=== PATIENT | female | born 1960 | race American Indian/Alaskan Native ===

== ENCOUNTER 2020-07-28 08:02 | Emergency (ER) | payer BC, SELFPAY ==
[2020-07-28 08:16] VITALS: BP 151/89; PULSE 109; RESP 20; TEMP 36.8; O2SAT 96; BMI 43.4
--- NOTE | 2020-07-28 08:31 | ED_ITS ---
HPI - Back Pain/Injury General Chief Complaint: Back Pain/Injury Stated Complaint: back/ side pain since friday Time Seen by Provider: 07/28/20 08:18 Source: patient Limitations: no limitations History of Present Illness HPI Narrative: Patient is a 60-year-old female with no known past medical history presenting with left flank pain ongoing for the last 2 days. She says it started suddenly when she twisted she said it was very spasming and took about 3 hours for to stop. Since then and has come and gone and now radiates down to her groin. She is extremely nauseous its worst pain she has ever felt. She has been taking ibuprofen for it which she says does seem to help. She denies any painful frequent urination she feels nauseous but no vomiting. No changes in bowel habits. She has had decrease in appetite. No prior history of kidney stones. MD Complaint: back pain Onset (ago): day(s) (2) Related Data Previous Rx's Medication Instructions Recorded cephalexin 500 mg PO BID 7 Days #14 cap 07/28/20 ondansetron 4 mg PO Q8H PRN #10 tab 07/28/20 Allergies Allergy/AdvReac Type Severity Reaction Status Date / Time Sulfa (Sulfonamide Allergy Intermediate rash Verified 07/28/20 08:15 Antibiotics) [SULFA (SULFONAMIDE ANTIBIOTICS)] nut - unspecified [NUT] Allergy Unknown LIPS SWELL Verified 07/28/20 08:15 strawberry [STRAWBERRY] Allergy Unknown LIPS SWELL Verified 07/28/20 08:15 Review of Systems Review of Systems Narrative: GENERAL: Denies chills, fatigue, malaise, fever, sweats, travel HEENT: Denies sinus pain, ear pain, sore throat, difficulty swallowing, neck pain RESPIRATORY: Denies dyspnea, cough, wheezing, hemoptysis, sputum. CARDIOVASCULAR: Denies chest pain, palpitations, orthopnea, edema GASTROINTESTINAL: Denies nausea, vomiting, abdominal pain, diarrhea, constipation, melena. : See HPI MUSCULOSKELETAL: + back pain Denies weakness, joint pain, or bony pain SKIN: No rash, no erythema, no pruritus NEUROLOGIC: Denies weakness, dizziness, headache, numbness, change in speech, confusion PSYCHIATRIC: No concerning psychosocial issues. 12 point review of systems is negative except for those stated above and HPI Patient History Medical History Patient denies medical problems Social History Smoking Status: Never smoker Smoking Status: Never smoker alcohol intake frequency: 0-2 drinks per day Substance Use Type: does not use Exam Initial Vital Signs Initial Vital Signs: Vital Signs Temperature 98.2 F 07/28/20 08:16 Pulse Rate 109 H 07/28/20 08:16 Respiratory Rate 20 07/28/20 08:16 Blood Pressure 151/89 H 07/28/20 08:16 Pulse Oximetry 96 07/28/20 08:16 GENERAL: Alert pleasant 6-year-old female BMI 43 appears in mild discomfort. HEENT: Head atraumatic,EOMI, pupils reactive, face symmetric, moist mucous membranes CARDIOVASCULAR: Regular rate and rhythm without murmurs, rubs or gallops. RESPIRATORY: Breath sounds equal bilaterally, no wheezes rales or rhonchi. ABDOMEN: Soft, nontender. Normoactive bowel sounds all 4 quadrants. No guarding or rebound. Mild left-sided lateral pain : No CVA tenderness EXTREMITIES: Normal range of motion, no clubbing or edema. Neurovascularly intact NEUROLOGICAL: Alert and oriented x4.Normal gait and speech. SKIN: Warm, dry, no laceration, no petechiae, no rashes or lesions. Course Orders Ordered: ED Orders 07/28/20 08:30 Complete Blood Count AUTO DIFF Stat Comprehensive Metabolic Panel Stat Lipase Stat 07/28/20 08:50 Urine Culture Stat Urine Microscopic Stat 07/28/20 09:19 CT kidney ureter bladder (KUB) Stat Discontinued Medications Sodium Chloride (Normal Saline 0.9%) 1,000 mls @ 1,000 mls/hr IV CONT LEONARD Last Infusion: 07/28/20 10:30 Dose: 0 mls/hr Documented by: Admin: 07/28/20 08:41 Dose: 1,000 mls/hr Documented by: AJ Ketorolac Tromethamine (Ketorolac 30 Mg/Ml Vial) 30 mg IV NOW ONE Stop: 07/28/20 08:27 Last Admin: 07/28/20 08:41 Dose: 30 mg Documented by: AJ Ondansetron HCl (Ondansetron 4 Mg/2 Ml Inj) 4 mg IV NOW ONE Stop: 07/28/20 08:27 Last Admin: 07/28/20 08:41 Dose: 4 mg Documented by: AJ Vital Signs Vital signs: Vital Signs - 8 hr 07/28/20 08:16 07/28/20 10:30 Temperature 98.2 F Pulse Rate 109 H 79 Respiratory Rate 20 18 Blood Pressure 151/89 H 161/88 H Pulse Oximetry 96 97 MDM - Back Pain/Injury Lab Data Attestation: I reviewed the patient's lab results. Result diagrams: 07/28/20 08:30 07/28/20 08:30 Labs: Lab Results 07/28/20 07/28/20 07/28/20 Range/Units 08:30 08:30 08:50 WBC 7.7 (4.5-11.0) X10^3/uL RBC 4.55 (4.0-5.2) X10^6/uL Hgb 13.8 (12.0-16.0) g/dL Hct 41.5 (36-46) % MCV 91.1 (80-100) fL MCH 30.4 (26-34) PG MCHC 33.3 (30-36) % RDW 13.3 (11.6-14.8) % Plt Count 223 (150-400) X10^3/uL Neut % (Auto) 73.3 (50-75) % Lymph % (Auto) 20.5 L (25-40) % [place] % (Auto) 5.3 (3-14) % Eos % (Auto) 0.3 L (2-4) % Baso % (Auto) 0.6 (0-2) % Neut # (Auto) 5600 (8477-8776) /uL Lymph # (Auto) 1600 (4278-9944) /uL [place] # (Auto) 400 (0-900) /uL Eos # (Auto) 0 (0-450) /uL Baso # (Auto) 0 (0-100) /uL Sodium 139 (137-145) mmol/L Potassium 4.1 (3.4-5.1) mmol/L Chloride 107 (98-107) mmol/L Carbon Dioxide 24 (22-32) mmol/L BUN 15 (7-17) mg/dL Creatinine 0.68 (0.52-1.04) mg/dL Estimated GFR > 60.0 (>60) mL/min BUN/Creatinine Ratio 22.1 H (6-22) Glucose 124 H (80-110) mg/dL Calcium 9.3 (8.4-10.2) mg/dL Total Bilirubin 1.0 (0.2-1.3) mg/dL AST 45 H (14-36) IU/L ALT 34 (<35) IU/L Alkaline Phosphatase 91 (38-126) U/L Total Protein 8.1 (6.3-8.2) g/dL Albumin 4.1 (3.5-5.0) g/dL Globulin 4.0 (1.7-4.1) g/dL Albumin/Globulin Ratio 1.0 (1.0-2.8) Lipase 45 (23-300) U/L Urine RBC 10-30/hpf H (0-5/HPF) Urine WBC 1-5/hpf (0-5/HPF) Ur Squamous Epith Cells 1-5 /hpf (0-5/HPF) Calcium Oxalate Crystal Few H Urine Bacteria Moderate (10-30) H (None) Urine Mucus 2+ H (Negative) Ur Culture Indicated? Specimen cultured Urine Dip Bedside Urine Glucose Negative Bedside Urine Bilirubin - Negative Bedside Urine Ketone + 15 Urine Specific [place] 1.030 Bedside Urine Occult Blood +++ Bedside Urine pH 6.0 Bedside Urine Protein + 30 Bedside Urine Urobilinogen - Negative Bedside Urine Nitrite - Negative Bedside Urine Leukocytes - Negative Esterase Imaging Data CT scan - abdomen/pelvis: Radiologist's Impression: PROCEDURE: CT KIDNEY URETER BLADDER (KUB) INDICATIONS: left flank pain TECHNIQUE: Noncontrast 5 mm thick sections acquired from the diaphragms to the symphysis. 5 mm thick coronal and sagittal reformats were then performed. For radiation dose reduction, the following was used: automated exposure control, adjustment of mA and/or kV according to patient size. COMPARISON: None. FINDINGS: Image quality: Excellent. Lung bases: Lung bases are clear. Heart size is normal. There is a moderate- sized hiatal hernia. Urinary system: There is a 4 mm stone in the proximal left ureter. There is mild left hydronephrosis with perinephric and periureteral stranding. Both kidneys are normal in size. No other kidney stones. Both ureters appear non-dilated throughout their expected courses. Bladder wall thickness is normal; no calcified bladder stones. Other solid organs: Hepatic steatosis. There are several low-density nodules in liver. Liver is normal in size. Gallbladder may contain sludge or small gallstones. Pancreas is normal in contours. Spleen is normal in size. No adrenal nodules. Peritoneum and bowel: Unenhanced bowel loops demonstrate normal wall thickness and caliber. No free fluid or air. Nodes and vessels: No retroperitoneal or mesenteric adenopathy by size criteria. Aorta and inferior vena cava are normal in caliber. Abdominal wall: There is a tiny fat containing umbilical hernia. Pelvis: No free pelvic fluid. No inguinal hernias or adenopathy. Bones: No suspicious bony lesions. No vertebral body compression fractures. IMPRESSION: 1. A 4 mm obstructive stone in the proximal left ureter causing mild left hydronephrosis. 2. Multiple hepatic hypodensities. Some are likely cysts but a few are indeterminate. Recommend a nonurgent abdominal ultrasound for further evaluation to exclude solid renal masses. 3. Hepatic steatosis. 4. Moderate-sized hiatal hernia. 5. Gallbladder sludge versus small gallstones. Dictated by: Soniya Tejada M.D. on 07/28/2020 at 9:53 MDM Narrative Medical decision making narrative: Patient's pain significantly improved after Toradol. His niece found have a core mm stone and UTI noted. She is offered opiate medications for pain however declines at this time is but would take Zofran. He is also found to have some indeterminate areas on her liver which I did discuss with her and recommended outpatient follow-up. Discharge Plan Departure Patient Disposition: Home Clinical Impression: Kidney stone on left side UTI (urinary tract infection) Qualifiers: Urinary tract infection type: acute cystitis Hematuria presence: with hematuria Qualified Code(s): N30.01 - Acute cystitis with hematuria Instructions: DI for Kidney Stones, DI for Urinary Tract Infection (UTI) Activity Restrictions/Additional Instructions: *You have been diagnosed with kidney stone *What to do: Increase fluid intake as tolerated you should passed kidney stone without issue. You are also found to have some areas on your liver which need to be followed by primary care provider *Continue to take medications as directed Keflex 500 mg twice a day for 7 days Ibuprofen 600 mg every 6 hours if needed for [id number] pain Zofran 4 mg every 8 hours if needed for nausea *Follow up with your primary care provider in 2-3 days *Return to ER if you should have increasing pain, fever, inability to urinate or any new, worsening or concerning symptoms Prescriptions: New ondansetron 4 mg tablet,disintegrating 4 mg PO Q8H PRN (Reason: nausea and vomiting) Qty: 10 RF: 0 cephalexin 500 mg capsule 500 mg PO BID 7 Days Qty: 14 RF: 0 Referrals: [facility] [Outside] Luiza Cole FNP-C [Primary Care Provider] -
[2020-07-28] MEDS: ONDANSETRON 4 MG/2 ML INJ IV (08:41)
[2020-07-28] MEDS: KETOROLAC 30 MG/ML VIAL IV (08:41)
[2020-07-28] MEDS: SODIUM CHLORIDE 0.9% 1,000 ML 1000 ML IV (08:41)
[2020-07-28 08:58] LABS: Add Manual Diff / Slide Review NO; Basophils Absolute Auto 0 /uL (0-100); Basophils Percent Auto 0.6 % (0-2); Eosinophils Absolute Auto 0 /uL (0-450); Eosinophils Percent Auto 0.3 % (2-4); Hematocrit 41.5 % (36-46); Hemoglobin 13.8 g/dL (12.0-16.0); Lymphocytes Absolute Auto 1600 /uL (1100-4500); Lymphocytes Percent Auto 20.5 % (25-40); Mean Corpuscular HGB Conc 33.3 % (30-36); Mean Corpuscular Hemoglobin 30.4 PG (26-34); Mean Corpuscular Volume 91.1 fL (80-100); Monocytes Absolute Auto 400 /uL (0-900); Monocytes Percent Auto 5.3 % (3-14); Neutrophils Absolute Auto 5600 /uL (1500-7000); Neutrophils Percent Auto 73.3 % (50-75); Platelet Count 223 X10^3/uL (150-400); Red Blood Cell Count 4.55 X10^6/uL (4.0-5.2); Red Cell Distribution Width 13.3 % (11.6-14.8); White Blood Cell Count 7.7 X10^3/uL (4.5-11.0)
[2020-07-28 09:10] LABS: Alanine Aminotransferase 34 IU/L (<35); Albumin 4.1 g/dL (3.5-5.0); BUN Creatinine Ratio 22.1 (6-22); Blood Urea Nitrogen 15 mg/dL (7-17); Calcium 9.3 mg/dL (8.4-10.2); Carbon Dioxide 24 mmol/L (22-32); Chloride 107 mmol/L (98-107); Estimated Glomerular Filt Rate > 60.0 mL/min (>60); Glucose 124 mg/dL (80-110); Lipase 45 U/L (23-300); Sodium 139 mmol/L (137-145); Total Protein 8.1 g/dL (6.3-8.2)
[2020-07-28 09:11] LABS: Bacteria Urine Moderate (10-30); Calcium Oxalate Crystals Urine Few; Culture Indicated Urine Specimen Cultured; Mucus Urine 2+ (Negative); RBC Urine 10-30/HPF (0-5/HPF); Squamous Epithelial Cell Urine 1-5 /HPF (0-5/HPF); WBC Urine 1-5/HPF (0-5/HPF)
[2020-07-28 09:12] LABS: HEMOLYSIS 54 (0-50)
[2020-07-28 09:13] LABS: Aspartate Aminotransferase 45 IU/L (14-36); Potassium 4.1 mmol/L (3.4-5.1)
[2020-07-28 09:14] LABS: Alkaline Phosphatase 91 U/L (38-126)
--- NOTE | 2020-07-28 09:19 | DI.CT.S_ITS ---
PROCEDURE: CT KIDNEY URETER BLADDER (KUB) INDICATIONS: left flank pain TECHNIQUE: Noncontrast 5 mm thick sections acquired from the diaphragms to the symphysis. 5 mm thick coronal and sagittal reformats were then performed. For radiation dose reduction, the following was used: automated exposure control, adjustment of mA and/or kV according to patient size. COMPARISON: None. FINDINGS: Image quality: Excellent. Lung bases: Lung bases are clear. Heart size is normal. There is a moderate-sized hiatal hernia. Urinary system: There is a 4 mm stone in the proximal left ureter. There is mild left hydronephrosis with perinephric and periureteral stranding. Both kidneys are normal in size. No other kidney stones. Both ureters appear non-dilated throughout their expected courses. Bladder wall thickness is normal; no calcified bladder stones. Other solid organs: Hepatic steatosis. There are several low-density nodules in liver. Liver is normal in size. Gallbladder may contain sludge or small gallstones. Pancreas is normal in contours. Spleen is normal in size. No adrenal nodules. Peritoneum and bowel: Unenhanced bowel loops demonstrate normal wall thickness and caliber. No free fluid or air. Nodes and vessels: No retroperitoneal or mesenteric adenopathy by size criteria. Aorta and inferior vena cava are normal in caliber. Abdominal wall: There is a tiny fat containing umbilical hernia. Pelvis: No free pelvic fluid. No inguinal hernias or adenopathy. Bones: No suspicious bony lesions. No vertebral body compression fractures. IMPRESSION: 1. A 4 mm obstructive stone in the proximal left ureter causing mild left hydronephrosis. 2. Multiple hepatic hypodensities. Some are likely cysts but a few are indeterminate. Recommend a nonurgent abdominal ultrasound for further evaluation to exclude solid renal masses. 3. Hepatic steatosis. 4. Moderate-sized hiatal hernia. 5. Gallbladder sludge versus small gallstones. Dictated by: Soniya Tejada M.D. on 07/28/2020 at 9:53 Approved by: Soniya Tejada M.D. on 07/28/2020 at 9:59
[2020-07-28 10:30] VITALS: BP 161/88; PULSE 79; RESP 18; O2SAT 97
== END 2020-07-28 10:30 | disposition home or self-care (01) ==
PROVIDERS: Emergency Provider Emergency Medicine; Family Provider Nurse Practitioner Family; PCP Nurse Practitioner Family
DX: N20.0 Calculus of kidney (principal); N30.01 Acute cystitis with hematuria
CPT/HCPCS: 36415; 74176; 80053; 81003; 81015; 83690; 85025; 87077; 87086; 87147; 96361; 96374; 96375; 99284; J1885; J2405

== ENCOUNTER 2023-12-03 14:05 | Emergency (ER) | payer BC, SELFPAY ==
[2023-12-03 14:17] VITALS: BP 176/95; PULSE 94; RESP 16; TEMP 36.6; O2SAT 98; BMI 43.2
--- NOTE | 2023-12-03 15:02 | ED_ITS ---
HPI - Back Pain/Injury <Charlee Mcguire PA-C - Last Filed: 12/03/23 16:13> General Chief Complaint: Urogenital-Male Stated Complaint: thinks has a kidney stone Time Seen by Provider: 12/03/23 14:51 Source: patient History of Present Illness HPI Narrative: Patient is a very pleasant 63-year-old female that presents to the emergency room department stay with left flank pain that started around 11 30. Patient has a history of kidney stones last kidney stones 2021. Patient states the pain discomfort started around 11 30 this morning. The pain started in the left flank area, and it is now radiating down into the left side and into the left groin. She has no urinary frequency urgency or painful urination. She currently has small amounts of urine. She has extreme flank pain. She has no fevers. She has no nausea, vomiting or diarrhea. Currently at this time the patient is very uncomfortable, position of comfort is standing and leaning over a chair. Patient denies recent injury, trauma or fall. She has no other further complaints. Patient is here with family at bedside. Related Data Previous Rx's Medication Instructions Recorded ondansetron 4 mg disintegrating 4 mg PO Q8H PRN nausea and 07/28/20 tablet vomiting #10 tabs ketorolac 10 mg tablet 10 mg PO Q6H PRN pain #14 tabs 12/03/23 Allergies Allergy/AdvReac Type Severity Reaction Status Date / Time Sulfa (Sulfonamide Allergy Intermediate rash Verified 12/03/23 14:21 Antibiotics) [SULFA (SULFONAMIDE ANTIBIOTICS)] nut - unspecified [NUT] Allergy Unknown LIPS SWELL Verified 12/03/23 14:21 strawberry [STRAWBERRY] Allergy Unknown LIPS SWELL Verified 12/03/23 14:21 Review of Systems <Charlee Mcguire PA-C - Last Filed: 12/03/23 16:13> Review of Systems Narrative: Negative except as above Genitourinary Comments: Small amounts of urine, Musculoskeletal Comments: Severe left-sided flank pain now radiating down into the left side and into the groin. Patient History <Charlee Mcguire PA-C - Last Filed: 12/03/23 16:13> Medical History Patient denies medical problems Social History Smoking Status: Never smoker Smoking Status: Never smoker alcohol intake frequency: 0-2 drinks per day Substance Use Type: does not use Exam <Charlee Mcguire PA-C - Last Filed: 12/03/23 16:13> Initial Vital Signs Initial Vital Signs: Vital Signs Temperature 97.8 F 12/03/23 14:17 Pulse Rate 94 H 12/03/23 14:17 Respiratory Rate 16 12/03/23 14:17 Blood Pressure 176/95 H 12/03/23 14:17 Pulse Oximetry 98 12/03/23 14:17 Oxygen Delivery Method Room Air 12/03/23 14:17 Const Other: Patient is a pleasant 63-year-old female, ambulated to the room under her own power, in acute distress, leaning over the chair. Moderately obese. Well- groomed. Eyes Other: Pupils are PERRLA, EOMs are intact Chest Other: Clear to auscultation, no wheezes, rales, rhonchi, crackles Cardio Other: Regular rate rhythm without any murmurs rubs or gallops Back/Spine/Pelvis Other: Left-sided CVAT tenderness. Skin Other: Patient mildly diaphoretic due to discomfort and pain Neuro Other: Cranial nerves are grossly intact patient is alert and oriented in moderate amount of discomfort. Speech, gait, are normal. Psych Other: Appearance, mental status, mood, affect, attitude and thought process and judgment are all normal limits. <Jcarlos Mcgrath MD - Last Filed: 12/26/23 11:56> Initial Vital Signs Initial Vital Signs: Vital Signs Temperature 97.8 F 12/03/23 14:17 Pulse Rate 94 H 12/03/23 14:17 Respiratory Rate 16 12/03/23 14:17 Blood Pressure 176/95 H 12/03/23 14:17 Pulse Oximetry 98 12/03/23 14:17 Oxygen Delivery Method Room Air 12/03/23 14:17 Course <Charlee Mcguire PA-C - Last Filed: 12/03/23 16:13> Orders Ordered: Discontinued Medications Ketorolac Tromethamine (Ketorolac 30 Mg/Ml Vial) 30 mg IM NOW ONE Stop: 12/03/23 14:53 Last Admin: 12/03/23 15:16 Dose: 30 mg Documented By: MEG Ondansetron HCl (Ondansetron 4 Mg Odt) 4 mg SL NOW ONE Stop: 12/03/23 14:53 Last Admin: 12/03/23 15:25 Dose: Not Given Documented By: MEG Vital Signs Vital signs: Vital Signs - 8 hr 12/03/23 14:17 Temperature 97.8 F Pulse Rate 94 H Respiratory Rate 16 Blood Pressure 176/95 H Pulse Oximetry 98 Oxygen Delivery Method Room Air <Jcarlos Mcgrath MD - Last Filed: 12/26/23 11:56> Orders Ordered: Discontinued Medications Ketorolac Tromethamine (Ketorolac 30 Mg/Ml Vial) 30 mg IM NOW ONE Stop: 12/03/23 14:53 Last Admin: 12/03/23 15:16 Dose: 30 mg Documented By: MEG Ondansetron HCl (Ondansetron 4 Mg Odt) 4 mg SL NOW ONE Stop: 12/03/23 14:53 Last Admin: 12/03/23 15:25 Dose: Not Given Documented By: MEG Vital Signs Vital signs: Vital Signs - 8 hr 12/03/23 14:17 Temperature 97.8 F Pulse Rate 94 H Respiratory Rate 16 Blood Pressure 176/95 H Pulse Oximetry 98 Oxygen Delivery Method Room Air MDM - Back Pain/Injury <Charlee Mcguire PA-C - Last Filed: 12/03/23 16:13> Lab Data Labs: Lab Results 12/03/23 Range/Units 14:24 Urine RBC >100/hpf H (0-5/HPF) Urine WBC 1-5/hpf (0-5/HPF) Ur Squamous Epith Cells 1-5 /hpf (0-5/HPF) Urine Bacteria None seen (None) Ur Culture Indicated? Cult not indicated Vol Urine Centrifuged 10ml (spun) Urine Dip Bedside Urine Glucose Negative Bedside Urine Bilirubin - Negative Bedside Urine Ketone - Negative Urine Specific [place] 1.020 Bedside Urine Occult Blood +++ Bedside Urine pH 6.0 Bedside Urine Protein + 30 Bedside Urine Urobilinogen - Negative Bedside Urine Nitrite - Negative Bedside Urine Leukocytes +/- 15 Esterase Urine positive for blood small amount of bacteria Imaging Data CT scan - abdomen/pelvis: Radiologist's Impression: Patient: Anahi Weston MR#: [id number] : 1960 Acct:[id number] Age/Sex: 63 / F Date of Service: 12/03/23 Loc: ED Accession Number: [id number] Procedure: CT abdomen pelvis wo con Ordering Provider: Charlee Mcguire PA-C PROCEDURE: CT ABDOMEN PELVIS WO CON INDICATIONS: Flank pain thinks has a kidney stone TECHNIQUE: Axial sections were acquired from the lung bases to the pubic symphysis. Coronal and sagittal reformats were performed. For radiation dose reduction, the following was used: automated exposure control, adjustment of mA and/or kV according to patient size. COMPARISON: [facility], CT, CT KIDNEY URETER BLADDER (KUB), 07/28/2020, 9:14. FINDINGS: Image quality: Diagnostic. Lower Chest: No significant findings. URINARY: Right Kidney: No stones or hydronephrosis. Right Ureter: No hydroureter. Left Kidney: Minimal renal collecting system prominence. Left Ureter: Minimal ureteral prominence. Bladder: Normal wall thickness. Punctate bladder stone. ABDOMEN: Liver: No contour-deforming solid mass. Simple hepatic cysts. Gallbladder: Stones without wall thickening. Biliary ducts: No biliary dilation. Pancreas: No ductal dilation. Spleen: Size is within normal limits. Adrenal Glands: No adrenal nodules. Stomach and Bowel: Normal colonic caliber, without significant wall thickening. Diverticulosis. Peritoneum: No abnormal intraperitoneal fluid. No free air. Ventral Wall: No hernia. Abdominal Nodes: No enlarged retroperitoneal or mesenteric lymph nodes. Vessels: Aorta and inferior vena cava are normal in size. PELVIS: Pelvic Organs: Unremarkable. Pelvic Nodes: Unremarkable. Miscellaneous: No inguinal hernias are seen. Bones: Unremarkable. IMPRESSION: Minimal prominence of the left renal/ureteral collecting system. This is likely secondary to recently passed punctate stone within the bladder base. Dictated by: Fatemeh Nichols M.D. on 12/03/2023 at 15:45 Approved by: Fatemeh Nichols M.D. on 12/03/2023 at 15:47 MDM Narrative Medical decision making narrative: Pleasant 63-year-old female with sudden onset of left-sided flank pain with a history of kidney stones in 2021. Who presents with signs and symptoms of left- sided flank pain, diaphoresis, and movement of discomfort and pain associated with signs and symptoms of a left-sided kidney stone. Patient brought to the emergency department by family, brought back to the [facility] area. Patient currently standing due to position of comfort. Seen and evaluated. 30 mg IM Toradol [address] scan without contrast to evaluate for stone CT scan shows what looks like a stone that has already passed. Ureter show irritation, no stone is seen, radiologist assumes that the stone has now passed. Patient feeling better after the pain shot Differential diagnosis; urinary tract infection, pyelonephritis, kidney stone. <Jcarlos Mcgrath MD - Last Filed: 12/26/23 11:56> Lab Data Labs: Lab Results 12/03/23 Range/Units 14:24 Urine RBC >100/hpf H (0-5/HPF) Urine WBC 1-5/hpf (0-5/HPF) Ur Squamous Epith Cells 1-5 /hpf (0-5/HPF) Urine Bacteria None seen (None) Ur Culture Indicated? Cult not indicated Vol Urine Centrifuged 10ml (spun) Urine Dip Bedside Urine Glucose Negative Bedside Urine Bilirubin - Negative Bedside Urine Ketone - Negative Urine Specific [place] 1.020 Bedside Urine Occult Blood +++ Bedside Urine pH 6.0 Bedside Urine Protein + 30 Bedside Urine Urobilinogen - Negative Bedside Urine Nitrite - Negative Bedside Urine Leukocytes +/- 15 Esterase Discharge Plan Departure Patient Disposition: Home Clinical Impression: Kidney stone on left side Instructions: Kidney Stones -- Adult Activity Restrictions/Additional Instructions: Increase fluids follow-up with your primary care doctor as needed Prescriptions: New ketorolac 10 mg tablet 10 mg PO Q6H PRN (Reason: pain) Qty: 14 0RF Rx Instructions: maximum total duration of 5 days from all oral, intranasal, or parenteral formulations No Action ondansetron 4 mg tablet,disintegrating 4 mg PO Q8H PRN (Reason: nausea and vomiting) Qty: 10 0RF Referrals: Luiza Cole FNP-C [Primary Care Provider] - Stand Alone Forms: Patient Portal/API ED Sign-out <Jcarlos Mcgrath MD - Last Filed: 12/26/23 11:56> Cosign ED Attending Cosignature Attestation: I was immediately available in the department for consultation. ?This documentation has been reviewed and I agree with assessment and plan. Supervised by Jcarlos Mcgrath MD
--- NOTE | 2023-12-03 15:15 | DI.CT.S_ITS ---
PROCEDURE: CT ABDOMEN PELVIS WO CON INDICATIONS: Flank pain thinks has a kidney stone TECHNIQUE: Axial sections were acquired from the lung bases to the pubic symphysis. Coronal and sagittal reformats were performed. For radiation dose reduction, the following was used: automated exposure control, adjustment of mA and/or kV according to patient size. COMPARISON: [facility], CT, CT KIDNEY URETER BLADDER (KUB), 07/28/2020, 9:14. FINDINGS: Image quality: Diagnostic. Lower Chest: No significant findings. URINARY: Right Kidney: No stones or hydronephrosis. Right Ureter: No hydroureter. Left Kidney: Minimal renal collecting system prominence. Left Ureter: Minimal ureteral prominence. Bladder: Normal wall thickness. Punctate bladder stone. ABDOMEN: Liver: No contour-deforming solid mass. Simple hepatic cysts. Gallbladder: Stones without wall thickening. Biliary ducts: No biliary dilation. Pancreas: No ductal dilation. Spleen: Size is within normal limits. Adrenal Glands: No adrenal nodules. Stomach and Bowel: Normal colonic caliber, without significant wall thickening. Diverticulosis. Peritoneum: No abnormal intraperitoneal fluid. No free air. Ventral Wall: No hernia. Abdominal Nodes: No enlarged retroperitoneal or mesenteric lymph nodes. Vessels: Aorta and inferior vena cava are normal in size. PELVIS: Pelvic Organs: Unremarkable. Pelvic Nodes: Unremarkable. Miscellaneous: No inguinal hernias are seen. Bones: Unremarkable. IMPRESSION: Minimal prominence of the left renal/ureteral collecting system. This is likely secondary to recently passed punctate stone within the bladder base. Dictated by: Fatemeh Nichols M.D. on 12/03/2023 at 15:45 Approved by: Fatemeh Nichols M.D. on 12/03/2023 at 15:47
[2023-12-03] MEDS: KETOROLAC 30 MG/ML VIAL IM (15:16)
[2023-12-03 15:32] LABS: Bacteria Urine None Seen; Culture Indicated Urine Cult Not Indicated; RBC Urine >100/HPF (0-5/HPF); Squamous Epithelial Cell Urine 1-5 /HPF (0-5/HPF); Urine Volume 10mL (spun); WBC Urine 1-5/HPF (0-5/HPF)
[2023-12-03 16:29] VITALS: BP 148/69; PULSE 70; RESP 18; O2SAT 94
--- NOTE | 2023-12-03 16:29 | PC.NURSE ---
Lower back pain; concern of kidney stone. Hx of kidney stone. Pt states that pain subsided shortly around when IM ketorolac was administered
== END 2023-12-03 16:30 | disposition home or self-care (01) ==
PROVIDERS: Emergency Medicine; Emergency Provider Physician Assistant; Family Provider Nurse Practitioner Family; PCP Nurse Practitioner Family
DX: N20.0 Calculus of kidney (principal); Z87.442 Personal history of urinary calculi
CPT/HCPCS: 74176; 81003; 81015; 96372; 99283; J1885